=== PATIENT | female | born 1955 | race Caucasian/White ===

== ENCOUNTER → 2019-08-19 | Outpatient (CLI) | payer MEDICARE, OTHER | END | disposition home or self-care (01) | LOC: RADMN 09:05 | PROVIDERS: ATTEND Surgery | DX: S72.352D Displaced comminuted fracture of shaft of left femur, subsequent encounter for closed fracture with routine healing (principal); S82.042D Displaced comminuted fracture of left patella, subsequent encounter for closed fracture with routine healing; S82.142D Displaced bicondylar fracture of left tibia, subsequent encounter for closed fracture with routine healing; M17.12 Unilateral primary osteoarthritis, left knee; M25.462 Effusion, left knee; X58.XXXD Exposure to other specified factors, subsequent encounter | CPT/HCPCS: 73700 ==